=== PATIENT | male | born 1945 | race Caucasian/White ===

== ENCOUNTER 2020-11-07 10:10 | Observation (INO) | payer MEDICARE ==
[~2020-11-07] VITALS: Ht 177.8 cm; Wt 94.1 kg
[2020-11-07 10:38] LABS: HEMOGLOBIN 14.5 gm/dl (14.0-17.5); RED BLOOD COUNT 4.55 M/UL (4.20-5.50); WHITE BLOOD COUNT 6.2 K/UL (4.5-11.0)
[2020-11-07 11:04] LABS: BUN/CREATININE RATIO 17 (0-10)
[2020-11-07] MEDS ORDERED: PREDNISOLONE ACE5 ML EYERT (12:20)
[2020-11-07] MEDS ORDERED: KLONOPIN1 MG PO (12:20)
[2020-11-07] MEDS ORDERED: JARDIANCE25 MG PO (12:21)
[2020-11-07] MEDS ORDERED: PLAVIX 75 MG TA75 MG PO (12:21)
[2020-11-07] MEDS ORDERED: PROSCAR 5 MG TAB5 MG PO (12:21)
[2020-11-07] MEDS ORDERED: FLOMAX 0.4 MG0.4 MG PO (12:21)
[2020-11-07] MEDS ORDERED: ZOCOR40 MG PO (12:21)
[2020-11-07] MEDS ORDERED: CARAFATE1 GM PO (12:22)
[2020-11-07] MEDS ORDERED: GLUCOPHAGE1000 MG PO (12:22)
[2020-11-07] MEDS ORDERED: FARXIGA10 MG PO (12:22)
[2020-11-07] MEDS ORDERED: NEXIUM20 MG PO (12:23)
[2020-11-07] MEDS ORDERED: PRESERVISION A1 EAC2 PO (13:55)
[2020-11-08 05:47] LABS: HEMOGLOBIN 14.5 gm/dl (14.0-17.5); RED BLOOD COUNT 4.66 M/UL (4.20-5.50); WHITE BLOOD COUNT 5.6 K/UL (4.5-11.0)
[2020-11-08 06:07] LABS: BUN/CREATININE RATIO 14 (0-10)
[2020-11-08] MEDS ORDERED: ISOSORBIDE MONO30 MG PO (12:01)
[2020-11-08] MEDS ORDERED: ASPIRIN EC81 MG PO (12:01)
== END 2020-11-08 13:15 | disposition home or self-care (01) ==
LOC: ER1 10:10 → CDU 11:54 → M/S 19:11
PROVIDERS: Emergency Medicine; Physician Assistant; ADMIT Internal Medicine
DX: R07.9 Chest pain, unspecified (principal); I25.10 Atherosclerotic heart disease of native coronary artery without angina pectoris; E11.9 Type 2 diabetes mellitus without complications; E78.5 Hyperlipidemia, unspecified; H91.90 Unspecified hearing loss, unspecified ear; I25.2 Old myocardial infarction; F41.9 Anxiety disorder, unspecified; K21.9 Gastro-esophageal reflux disease without esophagitis; Z86.74 Personal history of sudden cardiac arrest; Z95.1 Presence of aortocoronary bypass graft; Z95.5 Presence of coronary angioplasty implant and graft; Z79.84 Long term (current) use of oral hypoglycemic drugs; Z79.02 Long term (current) use of antithrombotics/antiplatelets; Z79.899 Other long term (current) drug therapy; Z20.822 Contact with and (suspected) exposure to COVID-19
CPT/HCPCS: 36415; 71045; 80048; 80053; 82550; 82553; 82962; 83036; 83874; 83880; 84484; 85025; 93005; 99285; G0378; U0002

== ENCOUNTER 2021-09-16 18:47 | Observation (INO) | payer MEDICARE ==
[~2021-09-16] VITALS: Ht 177.8 cm; Wt 95.5 kg
[~2021-09-16 18:47] MED LIST: ASPIRIN EC81 MG PO; CARAFATE1 GM PO; FARXIGA10 MG PO; FLOMAX 0.4 MG0.4 MG PO; GLUCOPHAGE1000 MG PO; ISOSORBIDE MONO30 MG PO; JARDIANCE25 MG PO; KLONOPIN1 MG PO; NEXIUM20 MG PO; PLAVIX 75 MG TA75 MG PO; PREDNISOLONE ACE5 ML EYERT; PRESERVISION A1 EAC2 PO; PROSCAR 5 MG TAB5 MG PO; ZOCOR40 MG PO
[2021-09-16 19:20] LABS: HEMOGLOBIN 15.3 gm/dl (14.0-17.5); RED BLOOD COUNT 4.84 M/UL (4.20-5.50); WHITE BLOOD COUNT 5.9 K/UL (4.5-11.0)
[2021-09-16 19:48] LABS: BUN/CREATININE RATIO 18 (0-10)
[2021-09-17 05:24] LABS: HEMOGLOBIN 13.5 gm/dl (14.0-17.5); RED BLOOD COUNT 4.37 M/UL (4.20-5.50); WHITE BLOOD COUNT 5.8 K/UL (4.5-11.0)
[2021-09-17 05:56] LABS: BUN/CREATININE RATIO 16 (0-10)
[2021-09-17] MEDS ORDERED: LORATADINE10 MG PO (10:32)
[2021-09-17] MEDS ORDERED: GLIPIZIDE ER10 MG PO (10:33)
[2021-09-18 02:43] LABS: RED BLOOD COUNT 4.76 M/UL (4.20-5.50)
[2021-09-18 02:52] LABS: WHITE BLOOD COUNT 7.4 K/UL (4.5-11.0)
[2021-09-18 03:07] LABS: BUN/CREATININE RATIO 11 (0-10)
== END 2021-09-18 12:30 | disposition home or self-care (01) ==
LOC: ER1 18:47 → CDU 20:13 → PROG CARE 09-17 15:02
PROVIDERS: Internal Medicine; Physician Assistant; ADMIT Internal Medicine
PROC: 02703ZZ Dilation of Coronary Artery, One Artery, Percutaneous Approach (ICD-10-PCS; principal; 2021-09-17)
PROC: B2161ZZ Fluoroscopy of Right and Left Heart using Low Osmolar Contrast (ICD-10-PCS; 2021-09-17)
PROC: 4A023N8 Measurement of Cardiac Sampling and Pressure, Bilateral, Percutaneous Approach (ICD-10-PCS; 2021-09-17)
DX: I21.4 Non-ST elevation (NSTEMI) myocardial infarction (principal); I25.110 Atherosclerotic heart disease of native coronary artery with unstable angina pectoris; U07.1 COVID-19; E11.9 Type 2 diabetes mellitus without complications; I24.9 Acute ischemic heart disease, unspecified; I10 Essential (primary) hypertension; I25.2 Old myocardial infarction; Z79.82 Long term (current) use of aspirin; Z79.02 Long term (current) use of antithrombotics/antiplatelets; Z79.84 Long term (current) use of oral hypoglycemic drugs; Z79.899 Other long term (current) drug therapy; Z87.891 Personal history of nicotine dependence; Z95.1 Presence of aortocoronary bypass graft
CPT/HCPCS: 36415; 71045; 80048; 80053; 80061; 82550; 82553; 82962; 83036; 83735; 83874; 84439; 84443; 84484; 85025; 85027; 85610; 85730; 86140; 92920; 93005; 96374; 96375; 96376; 99152; 99153; 99285; C1725; C1769; C9113; G0378; J0583; J1644; J2250; J2270; J3010; J7040; Q9967; U0002

== ENCOUNTER → 2021-10-26 | Outpatient (CLI) | payer MEDICARE ==
[~2021-10-26] MED LIST changes: +GLIPIZIDE ER10 MG PO; +LORATADINE10 MG PO
== END ==
LOC: HEART 5 12:53
DX: I25.10 Atherosclerotic heart disease of native coronary artery without angina pectoris (principal); R07.9 Chest pain, unspecified; I08.3 Combined rheumatic disorders of mitral, aortic and tricuspid valves; I27.20 Pulmonary hypertension, unspecified
CPT/HCPCS: 93306